=== PATIENT | female | born 1995 | race Caucasian/White ===

== ENCOUNTER 2016-09-03 15:24 | Emergency (ER) | payer MEDICAID ==
[~2016-09-03] VITALS: Ht 162.6 cm; Wt 63.3 kg
[2016-09-03 15:29] VITALS: BP 130/87
== END 2016-09-03 17:16 | disposition home or self-care (01) ==
LOC: ED 15:24
DX: S83.005A Unspecified dislocation of left patella, initial encounter (principal); X58.XXXA Exposure to other specified factors, initial encounter; Y93.89 Activity, other specified; Y99.8 Other external cause status; Y92.89 Other specified places as the place of occurrence of the external cause